=== PATIENT | female | born 1985 | race Caucasian/White ===

== ENCOUNTER 2019-04-16 15:35 | Inpatient (IN) ==
[2019-04-16] MEDS ORDERED: KLONOPIN PO PRN (16:10)
--- NOTE | 2019-04-16 16:29 | Diag Imaging Result Doc PS360 ---
EXAM: CHEST-1 VIEW 04/16/2019 HISTORY: ABD PAIN TECHNIQUE: AP portable upright at 1621 COMMENT: There is no evidence of acute cardiac or pulmonary disease. Compared to 02/05/2018 there has been no significant change in the appearance of the chest. IMPRESSION: No acute disease. Electronically signed by Ghanshyam Boyce 04/16/2019 4:27 PM
[2019-04-16 16:45] LABS: HEMATOCRIT 28.1 % (37.0-47.0); HEMOGLOBIN 8.3 g/dL (12.0-16.0); MCH 22.9 PG (27-31); MCHC 29.5 g/dL (33-37); MCV 77.6 FL (81-99); MPV 9.8 FL (7.4-10.4); RBC 3.62 XMIL (4.2-5.4); RDW 17.4 % (11.5-14.5); WBC 8.53 X1000 (4.8-10.8)
[2019-04-16] MEDS: PROTONIX IV SCH (16:49)
[2019-04-16] MEDS: SODIUM CHLORIDE 0.9% INJ SCH (16:49)
--- NOTE | 2019-04-16 17:04 | EKG Report ---
Test Performed on : 04/16/2019 4:42:19 PM Test Reason : ABD PAIN Blood Pressure : / mmHG Vent. Rate : 088 BPM Atrial Rate : 088 BPM P-R Int : 148 ms QRS Dur : 092 ms QT Int : 400 ms P-R-T Axes : 076 041 029 degrees QTc Int : 484 ms Normal sinus rhythm. Prolonged QT Abnormal ECG When compared with ECG of 19-MAR-2018 18:25, No significant change was found Confirmed by Sumi BALTAZAR, Paolo ([id number]) on 04/16/2019 6:57:25 PM
[2019-04-16 17:07] LABS: AGAP 11; ALB/GLOB RATIO 1.5; ALBUMIN 3.8 g/dL (3.5-5.0); ALKALINE PHOSPHATASE 55 U/L (32-104); AMYLASE 36 U/L (20-200); BUN 8 mg/dL (8-22); CALCIUM 8.4 mg/dL (8.8-10.2); CHLORIDE 100 mmol/L (98-107); COSMO 278; CREATININE 0.9 mg/dL (0.5-0.9); ESTIMATED GFR > 60; GLUCOSE 109 mg/dL (70-104); GOT 10 U/L (10-30); GPT 21 U/L (10-36); POTASSIUM 3.4 mmol/L (3.5-5.1); SODIUM 140 mmol/L (136-145); TCO2 29 mmol/L (25-35); TOTAL BILIRUBIN < 0.15 mg/dL (0.20-1.00); TOTAL PROTEIN 6.3 g/dL (6.3-8.3)
[2019-04-16] MEDS: NORCO-5 PO PRN (17:58)
[2019-04-16] MEDS: ZOFRAN IV PRN (17:59)
[2019-04-16] MEDS: LEVAQUIN 750 MG/D5W 750 MG/150 ML IVPB IV SCH (19:06)
[2019-04-16] MEDS: DULCOLAX PR PRN (19:06)
[2019-04-16] MEDS: POTASSIUM CHLORIDE 10 MEQ in 1/2 NS 1,000 ML IV SCH (19:06)
[2019-04-16] MEDS: NEURONTIN PO SCH (21:12)
--- NOTE | 2019-04-16 21:56 | HISTORY AND PHYSICAL ---
HISTORY OF PRESENT ILLNESS: Ms. Kaminski who is a 33-year-old white female is admitted with intermittent severe and diffuse abdominal pain and vomiting. She has been staying very nauseous and occasionally vomiting. She was in the emergency room. Culture studies were done. She also had a CT scan done, which revealed presence of constipation and cholecystectomy. Otherwise, it was unremarkable. PREVIOUS SURGICAL HISTORY: Reveals 2 sections, tubal ligation, and cholecystectomy. PAST MEDICAL HISTORY: She is grossly obese, has been staying very nervous and tense, has mild hypertension. 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 MEDICATIONS: Include gabapentin 300 mg b.i.d., Lexapro 10 mg daily, Klonopin 1 mg t.i.d. p.r.n., [place] 5 t.i.d. p.r.n. She gets Phenergan off and on, and she gets Fioricet for headaches. REVIEW OF SYSTEMS: Otherwise, other than abdominal pain and vomiting, it is negative, except that she has constipation without rectal bleeding or any GI bleeding. ALLERGIES: She is allergic to penicillin, sumatriptan, that is Imitrex. PHYSICAL EXAMINATION: GENERAL: Patient is alert, oriented. VITAL SIGNS: Reveal temperature normal, pulse 101 per minute, respiratory rate 20 per minute, blood pressure 141/72. HEAD: Normocephalic. EYES: PERRLA. Fundus examination not done. NECK: Supple. JVP normal. ENT EXAMINATION: Unremarkable. There is no evidence of lymphadenopathy, thyroid enlargement, pedal edema, calf tenderness, anemia, cyanosis or clubbing. She is anemic with pallor of skin and mucous membranes. BREAST EXAM: Not done. CHEST: Normal inspection. Lungs clear to auscultation. PMI cannot be located. CARDIOVASCULAR: Heart sounds normal. No murmur, gallop or rub noted. ABDOMEN: Nondistended. Hernial orifices normal. No guarding, rigidity, free fluid, masses, or organomegaly. Bowel sounds normal. RECTAL EXAM: Deferred. CENTRAL NERVOUS SYSTEM: Higher functions normal. Cranial nerves normal. Motor and sensory system examination unremarkable. Deep tendon reflexes normal. Plantars downgoing. Skull and spine examination reveals painful movements of the lumbosacral spine. There are no cerebellar signs or signs of meningeal irritation. SLR positive. Local motor exam and skin exam unremarkable. CLINICAL IMPRESSION: Recurrent abdominal pain and vomiting. PLAN: To evaluate her right now, try symptomatic therapy. cc: Paolo Jonas MD
[2019-04-17] MEDS: NORCO-5 PO PRN ×4 (00:07→19:40)
[2019-04-17] MEDS: ZOFRAN IV PRN ×3 (00:07→15:39)
[2019-04-17] MEDS: POTASSIUM CHLORIDE 10 MEQ in 1/2 NS 1,000 ML IV SCH (05:56)
[2019-04-17 07:13] LABS: AGAP 11; BUN 7 mg/dL (8-22); CALCIUM 8.3 mg/dL (8.8-10.2); CHLORIDE 105 mmol/L (98-107); COSMO 279; CREATININE 0.9 mg/dL (0.5-0.9); ESTIMATED GFR > 60; GLUCOSE 92 mg/dL (70-104); POTASSIUM 3.9 mmol/L (3.5-5.1); SODIUM 141 mmol/L (136-145); TCO2 25 mmol/L (25-35)
[2019-04-17] MEDS: NEURONTIN PO SCH ×3 (07:44→22:20)
[2019-04-17] MEDS: LEXAPRO PO SCH ×2 (07:44→08:19)
[2019-04-17] MEDS ORDERED: TYLENOL PM PO PRN (11:24)
[2019-04-17] MEDS: FIORICET PO PRN ×2 (11:42→22:20)
[2019-04-17] MEDS: KLONOPIN PO SCH ×2 (11:42→18:00)
--- NOTE | 2019-04-17 13:04 | PROGRESS NOTE ---
DATE: 04/17/2019 Ms. Kaminski is still having a lot of abdominal pain. She is constipated. The constipation is relieved to some extent. Potassium has come up to 3.9. She says she is still constantly persistently nauseous. I am going to ask a GI consult with Dr. Tenorio and Dr. Boyer. -3 cc: Paolo Jonas MD
[2019-04-17] MEDS: PROTONIX IV SCH (15:35)
[2019-04-17] MEDS: SODIUM CHLORIDE 0.9% INJ SCH (15:35)
[2019-04-17] MEDS ORDERED: GLYCERIN ADULT PR ONE (17:00)
[2019-04-17] MEDS ORDERED: MILK OF MAGNESIA PO ONE (17:06)
[2019-04-17] MEDS: LEVAQUIN 750 MG/D5W 750 MG/150 ML IVPB IV SCH (18:00)
[2019-04-17] MEDS: DULCOLAX PR PRN (18:00)
[2019-04-17] MEDS: FLEXERIL PO SCH (22:21)
[2019-04-18] MEDS: NORCO-5 PO PRN ×4 (05:16→23:05)
[2019-04-18] MEDS: POTASSIUM CHLORIDE 10 MEQ in 1/2 NS 1,000 ML IV SCH ×2 (06:20→21:11)
[2019-04-18] MEDS: KLONOPIN PO SCH ×4 (06:35→21:11)
--- NOTE | 2019-04-18 06:57 | GASTROENTEROLOGY CONSULTATION ---
DATE: 04/17/2019 REASON FOR CONSULTATION: Abdominal pain, nausea, vomiting, and constipation. HISTORY OF PRESENT ILLNESS: This is a 33-year-old female who reports off and on symptoms with abdominal pain and episodes of nausea and vomiting. Symptoms have been ongoing for several months, but have been worse over the last 1 to 2 weeks. Her pain was so bad at times that she could not catch her breath. She had reported upper abdominal pain and chest pain down to the belly button. She has never had a colonoscopy or an EGD. She did report constipation last week, and her last good bowel movement was approximately 1 week ago. She states she received a Dulcolax suppository last night with no good results. Normally, she has problems with diarrhea. She has noticed some dark stools lately. She was found to be anemic on evaluation. PAST MEDICAL HISTORY: Hypertension. Headaches. Chronic pain. PAST SURGICAL HISTORY: section x2. Tubal ligation. Cholecystectomy. ALLERGIES: Penicillin causing swelling. Imitrex causes headache. HOME MEDICATIONS: 1. Tylenol P.M. 1 tablet every night as needed. 2. Fioricet 1 3 times a day as needed. 3. Klonopin 1 mg 3 times a day. 4. Flexeril 10 mg every night. 5. Lexapro 10 mg daily. 6. Neurontin 300 mg twice a day. 7. [place] 5 one twice a day as needed. 8. Lisinopril/hydrochlorothiazide 20/12.5 daily. 9. Mobic 15 mg daily. 10. Prilosec 1 tablet daily. REVIEW OF SYSTEMS: Per history of present illness. PHYSICAL EXAMINATION: Vital Signs: Temperature 97.8 degrees, pulse 72, respirations 24, and blood pressure 122/58. General: The patient is awake and alert in no acute distress. HEENT: Normocephalic and atraumatic. Pupils equal, round, and reactive to light. Sclerae nonicteric. Respiratory: Lung sounds essentially clear. Cardiovascular: Regular rate and rhythm. Abdomen: Soft. She does have some mild tenderness with palpation. Otherwise obese. Positive bowel sounds. Extremities: No lower extremity edema noted. DIAGNOSTIC RESULTS: Laboratory: Hematology: WBC 8.53, hemoglobin 8.3, hematocrit 28.1, and platelets 508,000. Chemistry: Sodium 141, potassium 3.9, chloride 105, CO2 25, BUN 7 and creatinine 0.9. Glucose 92, calcium 8.3, total bilirubin less than 0.15. AST 10, ALT 21, alkaline phosphatase 55, and amylase 36. IMAGING STUDIES: Chest x-ray showing no acute disease. ASSESSMENT AND PLAN: 1. Abdominal pain. 2. Nausea and vomiting. 3. Anemia. 4. Constipation. Continue PPI. Would give her a glycerin suppository tonight and a dose of milk of magnesia. Repeat hemoglobin and hematocrit tomorrow. Monitor for evidence of active bleeding. We may need to proceed with an EGD. This can be done as an outpatient unless symptoms do not improve, we may have to do it as an inpatient. Further plans will be made as needed. I have discussed this case with Dr. Black. Thank you for this consultation. Dictated by LAWRENCE Montejo for Richard Black MD cc: LAWRENCE Hairston MD Amit V. Vora, MD
[2019-04-18] MEDS: LEXAPRO PO SCH (08:07)
[2019-04-18] MEDS: FIORICET PO PRN ×2 (08:07→18:43)
[2019-04-18] MEDS: NEURONTIN PO SCH ×2 (08:07→21:11)
[2019-04-18] MEDS: ZOFRAN IV PRN (08:08)
[2019-04-18] MEDS: PRINZIDE 20/12.5MG PO SCH (08:08)
[2019-04-18] MEDS ORDERED: MOBIC PO SCH (09:00)
[2019-04-18 11:55] LABS: BASO# 0.03 X1000 (0.0-0.2); BASO% 0.5 % (0.0-0.8); EOS# 0.24 X1000 (0.0-0.7); EOS% 3.9 % (0.0-10.0); HEMATOCRIT 28.2 % (37.0-47.0); HEMOGLOBIN 8.1 g/dL (12.0-16.0); LYMPH# 1.73 X1000 (1.2-3.4); LYMPH% 27.8 % (20.5-51.1); MCH 22.6 PG (27-31); MCHC 28.7 g/dL (33-37); MCV 78.6 FL (81-99); MONO# 0.52 X1000 (0.11-0.59); MONO% 8.4 % (1.7-9.3); MPV 9.7 FL (7.4-10.4); NEUT% 59.4 % (42.2-75.2); PLT 516 X1000 (130-400); RBC 3.59 XMIL (4.2-5.4); WBC 6.22 X1000 (4.8-10.8)
--- NOTE | 2019-04-18 12:09 | PROGRESS NOTE ---
DATE: 04/18/2019 Ms Kaminski's blood count is normal except that she is anemic with 8.3 hemoglobin. She had a GI consult yesterday, and she is going to probably go get the EGD today. We will continue to work on her anemia, which does appear like it could be iron deficiency. We will check her stool for occult blood today. Overall condition is otherwise unchanged. She continues to be nauseous. cc: Paolo Jonas MD
[2019-04-18 12:22] LABS: AGAP 12; ALB/GLOB RATIO 1.3; ALBUMIN 3.5 g/dL (3.5-5.0); ALKALINE PHOSPHATASE 52 U/L (32-104); BUN 6 mg/dL (8-22); CALCIUM 8.1 mg/dL (8.8-10.2); CHLORIDE 104 mmol/L (98-107); COSMO 272; CREATININE 1.1 mg/dL (0.5-0.9); ESTIMATED GFR 57; GLUCOSE 111 mg/dL (70-104); GOT 9 U/L (10-30); GPT 16 U/L (10-36); SODIUM 137 mmol/L (136-145); TCO2 21 mmol/L (25-35); TOTAL BILIRUBIN < 0.15 mg/dL (0.20-1.00); TOTAL PROTEIN 6.1 g/dL (6.3-8.3)
[2019-04-18 12:41] LABS: EOS 7 % (1-10); LYMPHS 29 % (21-51); MONO 4 % (1-9); SEGS 60 % (42-75)
[2019-04-18 12:42] LABS: LARGE PLATELETS OCCASIONAL
[2019-04-18 12:43] LABS: ANISOCYTOSIS 1+; HYPOCHROM 1+
[2019-04-18] MEDS: SODIUM CHLORIDE 0.9% INJ SCH (15:27)
[2019-04-18] MEDS: PROTONIX IV SCH (15:27)
[2019-04-18] MEDS: LEVAQUIN 750 MG/D5W 750 MG/150 ML IVPB IV SCH (18:38)
--- NOTE | 2019-04-18 21:00 | GASTROENTEROLOGY PROGRESS NOTE ---
DATE: 04/18/2019 SUBJECTIVE: The patient is lying in bed in no acute distress. She did report having some bowel movement results after a suppository and Milk of Magnesia. This did not improve her abdominal pain that she has been complaining of. She is reporting some upper GI abdominal pain. OBJECTIVE: Vital Signs: Temperature 97.9, pulse 84, respirations 20, blood pressure 98/56. General: Patient is awake and alert, in no acute distress. LABORATORY: Hematology: WBCs 6.22, hemoglobin 8.1, hematocrit 28.2, MCV 78.6, platelets 516. Chemistry: Sodium 137, potassium 4.0, chloride 104. CO2 is 21, BUN 6, creatinine 1.1, glucose 111, calcium 8.1. Total bilirubin less than 0.15, AST 9, ALT 16, alkaline phosphatase 52. ASSESSMENT AND PLAN: 1. Abdominal pain. 2. Nausea and vomiting. 3. Anemia. 4. Constipation. Has improved some with a suppository and Milk of Magnesia. 5. We will proceed with an EGD tomorrow for further evaluation of abdominal pain, nausea vomiting and anemia. Further plans to be made according to findings. I have discussed this case with Dr. Black. I have discussed the procedure along with benefits and risks with the patient. She wishes to proceed. Further plans will be made as needed. Dictated by LAWRENCE Montejo for Richard Black MD cc: LAWRENCE Hairston MD Amit V. Vora, MD
[2019-04-18] MEDS: FLEXERIL PO SCH (21:11)
[2019-04-19] MEDS: FIORICET PO PRN ×2 (03:35→10:12)
[2019-04-19] MEDS: POTASSIUM CHLORIDE 10 MEQ in 1/2 NS 1,000 ML IV SCH (06:31)
[2019-04-19] MEDS: NORCO-5 PO PRN ×2 (07:27→13:31)
[2019-04-19] MEDS ORDERED: DIPRIVAN 1% ONE (08:56)
[2019-04-19] MEDS ORDERED: XYLOCAINE-MPF 2% ONE (08:56)
[2019-04-19] MEDS ORDERED: VERSED ONE (09:26)
--- NOTE | 2019-04-19 09:51 | ENDOSCOPY OPERATIVE NOTE ---
[facility] ENDOSCOPY OPERATIVE NOTE , EGD PROCEDURE REPORT PATIENT: Flores Kaminski ADMISSION DATE: 04/19/2019 MR#: [id number] : 1985 PROCEDURE DATE: 04/19/2019 SURGEON: Richard Black MD STATUS: inpatient [employer]: Marino Munoz and Maria A Hdez PREOPERATIVE DIAGNOSIS: The patient is a 33 yr old female here for an EGD due to epigastric abdomina l pain and anemia secondary to chronic blood loss. PROCEDURE PERFORMED: EGD w/ biopsy MEDICATIONS: Per Anesthesia TOPICAL ANESTHETIC: none CONSENT: The patient understands the risks and benefits of the procedure and understands that these r isks include, but are not limited to: sedation, allergic reaction, infection, perforation and/or bleeding. Alternative means of evaluation and treatment include, among others: physical exam, x-rays, and/or surgical intervention. The patient elects to proceed with this endoscopic procedure. HISORY AND PHYSICAL: 04/19/2019 DESCRIPTION OF PROCEDURE: During intra-op preparation period all mechanical and medical equipment was checked for proper function. Hand hygiene and appropriate measures for infection prevention was taken. After the risks, benefits and alternatives of the procedure were thoroughly explained, Informed consent was verified, confirmed and timeout was successfully executed by the treatment team. The patient was anesthetized with topical anesthesia and the Pentax [id number] endoscope was introduced through the mouth and advanced to the second portion of the duodenu m. Retroflexion was performed in the stomach and revealed no abnormalities. The gastroscope was then slowly withdraw n and removed. ESOPHAGUS: Multiple non-bleeding, shallow and clean-based ulcers ranging between 3-7mm in size were f ound in the middle third of the esophagus and lower third esophagus. Biopsies were taken at edge of the ulcers and at t he center of the ulcers. The esophagus was otherwise normal. STOMACH: A single non-bleeding, round and clean-based ulcer ranging between 5-9mm in size was found i n the gastric antrum. Biopsies were taken at edge of the ulcer. The stomach otherwise appeared normal. DUODENUM: The duodenal mucosa showed no abnormalities. SPECIMENS REMOVED: No ADVERSE EVENTS: There were no complications. POSTOPERATIVE DIAGNOSIS: 1. Multiple ulcers ranging between 3-7mm in size were found in the midd le third of the esophagus and lower third esophagus; biopsies were taken 2. The esophagus was otherwise normal 3. Single ulcer ranging between 5-9mm in size was found in the gastric antrum; biopsies were taken 4. The stomach otherwise appeared normal 5. The duodenal mucosa showed no abnormalities RECOMMENDATIONS: 1. Resume pre-procedure medications 2. Follow-up biopsy results in 2 weeks 3. Transfer to floor REPEAT EXAM: Return in 4 months for EGD. Richard Black MD eSigned: Richard Black MD 04/19/2019 9:50 AM cc: PATIENT NAME: Flores Kaminski MR#: [id number]
--- NOTE | 2019-04-19 10:08 | PROGRESS NOTE ---
DATE: 04/19/2019 Ms. Kaminsik is feeling better. She is anemic. Hemoglobin is 8.1. I am going to prescribe her Protonix and iron tablets. Her anemia is mostly iron-deficiency anemia. Will try to get the stool if we can for occult blood test. -6 cc: Paolo Jonas MD
[2019-04-19] MEDS: LEXAPRO PO SCH (10:11)
[2019-04-19] MEDS: NEURONTIN PO SCH (10:11)
[2019-04-19] MEDS: KLONOPIN PO SCH ×2 (10:12→13:32)
[2019-04-19] MEDS: PRINZIDE 20/12.5MG PO SCH (10:12)
[2019-04-19 12:55] VITALS: BP 119/66
[2019-04-19] MEDS ORDERED: PERIDEX MT SCH (21:00)
--- NOTE | 2019-04-21 15:46 | DISCHARGE SUMMARY ---
ADMISSION DATE: 04/16/2019 DISCHARGE DATE: 04/19/2019 HISTORY AND HOSPITAL COURSE: Ms. Kaminski was admitted with severe abdominal pain. The patient is under a lot of stress. She had vomiting. Abdominal CT scan revealed presence of constipation, status post cholecystectomy. Her CBC was unremarkable except for anemia. Hemoglobin was 8.1 and electrolytes are normal. BUN and creatinine were normal. Dr. Black did the EGD. He saw multiple ulcers in the esophagus and a large ulcer in the stomach. Biopsies have been done in. She was she was given a prescription of ferrous sulfate and omeprazole. She will be seen in the office in about a week. FINAL DIAGNOSES: 1. Severe abdominal pain. 2. Vomiting. 3. Multiple esophageal sources. 4. A large stomach ulcer. 5. Constipation. 6. She had severe anemia which is iron deficiency. cc: Paolo Jonas MD
== END 2019-04-19 14:00 | disposition home or self-care (01) | DRG 381 ==
LOC: DIRADM 15:35 → 4N 15:43
PROVIDERS: ADMIT Internal Medicine; ATTEND Internal Medicine